=== PATIENT | female | born 1945 | race Caucasian/White ===

== ENCOUNTER → 2023-12-20 12:10 | Outpatient (REF) | payer MEDICARE, OTHER, SELFPAY ==
[2023-12-20 13:09] LABS: ALT (SGPT) 26 U/L (0-35); AST (SGOT) 34 U/L (14-36); Albumin 4.4 g/dl (3.5-5.0); Alkaline Phosphatase 74 U/L (38-126); Blood Urea Nitrogen 19 mg/dl (7-17); Calcium 9.9 mg/dl (8.4-10.2); Carbon Dioxide 33 mmol/L (22-30); Chloride 102 mmol/L (98-107); Glucose 126 mg/dl (70-99); HDL Cholesterol 81 mg/dl; LDL Cholesterol, Calculated 77 mg/dl; Potassium 4.5 mmol/L (3.5-5.1); Sodium 139 mmol/L (135-145); Total Bilirubin 0.9 mg/dl (0.2-1.3); Total Cholesterol 172 mg/dl (50-199); Total Protein 6.8 g/dl (6.3-8.2); Triglyceride 74 mg/dl (10-149); Very Low Density Lipoprotein 14 mg/dl (0-30); eGFR > 60.00
[2023-12-20 13:57] LABS: Microalbumin, Random Urine <0.6 mg/dl (0.6-1.7)
[2023-12-21 08:26] LABS: Glycohemoglobin (HgbA1c) 6.7 % (4.0-5.6)
== END ==
LOC: REG 12:10
PROVIDERS: ATTENDING PHYSICIAN Internal Medicine Endocrinology, Diabetes & Metabolism
DX: E10.65 Type 1 diabetes mellitus with hyperglycemia (principal)
CPT/HCPCS: 36415; 80053; 80061; 82043; 82570; 83036

== ENCOUNTER 2023-12-22 09:17 | Emergency (ER) | payer MEDICARE, OTHER, SELFPAY ==
[2023-12-22 09:28] VITALS: BP 141/66
--- NOTE | 2023-12-22 10:35 | ED.GENMED ---
History of Present Illness
<Stephanie Mccabe PA-C - Last Filed: 12/22/23 13:13>
General
Chief Complaint: Fall
Source: patient
Exam Limitations: none
Time Seen by Provider: 12/22/23 10:29
Nursing documentation reviewed up to this point in time: agreed with
Travel History
Have you had any contact with someone who has COVID-19?: No
Do you have any symptoms of coronavirus? Fever > 100 degrees, chills, cough, shortness of breath, sore throat, loss of taste or smell, muscle aches, or headache?: No
History of Present Illness
History of Present Illness:
78-year-old female with past medical history of insulin dependent diabetes presenting emergency department today with left-sided head pain and dizziness following a fall that occurred 6 days ago. Patient states that she was walking in her kitchen
when she tripped and hit her head on the counter and subsequently felt to her knees. Patient states that she did not lose consciousness. Patient states that she has no nausea vomiting. Patient states that she felt well at this time and thought
nothing of it but then her friends were advising her to report to emergency department and she started to feel some dizziness as the days progressed. Patient states that her dizziness is worse with looking at her phone or reading. Patient denies
any visual changes. Patient denies any eye pain. Patient denies any neck pain.
Past History
<Stephanie Mccabe PA-C - Last Filed: 12/22/23 13:13>
Past History
ED Past Medical History: IDDM and Psychiatric (Anxiety meds)
ED Past Surgical History: Negative Cardiac
Social History
Tobacco: Non-smoker
Alcohol: Occasional
Drug: None
Personal:
Living: with family
Employment: Retired
Family History
Family History: Other (Noncontributory); Negative Hypertension or Early CAD
Review of Systems
<Stephanie Mccabe PA-C - Last Filed: 12/22/23 13:13>
Review of Systems
All Other Systems: ROS reviewed and negative except as documented in HPI and ROS
Phy Exam
<Stephanie Mccabe PA-C - Last Filed: 12/22/23 13:13>
Physical Exam
Physical Exam:
General: Patient is well appearing and in no acute distress
Skin: Ecchymosis surrounding left orbit, small area of ecchymosis of the left forehead
Head: Mild tenderness palpation of the forehead. No palpable hematomas on the scalp. No Hendrix sign.
Eyes: No conjunctival erythema, hematomas. No proptosis. PERRLA. EOMs intact.
Ears: No hemotympanum bilaterally, no drainage from bilateral ears
Cardiac: Regular rate and rhythm.
Pulm: Normal respiratory effort
Abdomen: No abdominal tenderness, no signs of trauma
Musculoskeletal: Patient seen spontaneously moving cervical spine, no tenderness palpation of the cervical spine.
Neuro: AAOx3. Cranial nerves II through XII intact. Finger-nose, [id number] testing intact.
Course
<Stephanie Mccabe PA-C - Last Filed: 12/22/23 13:13>
Orders/Labs/Results
Orders:
Orders
12/22/23 10:43
CT Facial Bones W/o Iv Contras Urgent
Comment:
Reason For Exam: frontal head pain. head trauma
CT Head W/o Iv Contrast Urgent
Comment:
Reason For Exam: head trauma, dizziness
Vital Signs
Initial and Last Documented VS:
Initial Vital Signs
Temp Pulse Resp BP Pulse Ox
97.8 F 69 18 141/66 98
12/22/23 09:28 12/22/23 09:28 12/22/23 09:28 12/22/23 09:28 12/22/23 09:28
Last Documented Vital Signs
Temp Pulse Resp BP Pulse Ox
97.8 F 67 18 136/72 98
12/22/23 09:28 12/22/23 11:41 12/22/23 11:41 12/22/23 11:41 12/22/23 11:41
<Eliud Cunningham DO - Last Filed: 12/22/23 11:18>
Orders/Labs/Results
Orders:
Orders
12/22/23 10:43
CT Facial Bones W/o Iv Contras Urgent
Comment:
Reason For Exam: frontal head pain. head trauma
CT Head W/o Iv Contrast Urgent
Comment:
Reason For Exam: head trauma, dizziness
Vital Signs
Initial and Last Documented VS:
Initial Vital Signs
Temp Pulse Resp BP Pulse Ox
97.8 F 69 18 141/66 98
12/22/23 09:28 12/22/23 09:28 12/22/23 09:28 12/22/23 09:28 12/22/23 09:28
Last Documented Vital Signs
Temp Pulse Resp BP Pulse Ox
97.8 F 67 18 136/72 98
12/22/23 09:28 12/22/23 11:41 12/22/23 11:41 12/22/23 11:41 12/22/23 11:41
<Stephanie Mccabe PA-C - Last Filed: 12/22/23 13:13>
MDM/Problems Addressed
Differential Diagnosis Includes:
Differentials include concussion, epidural hematoma, intraparenchymal hemorrhage, orbital bone fracture, tension headache
MDM/Problems Addressed:
Mild head pain
Dizziness

Will obtain CT of the head and facial bones
Chronic conditions affecting care: DM and HTN
Acute Exacerbation and/or Progression of Chronic Illness: DM and HTN
<Stephanie Mccabe PA-C - Last Filed: 12/22/23 13:13>
*Radiology
Radiology exam reviewed: preliminary read by ED provider (No acute intracranial abnormality)
*Pulse Oximetry
Patient hypoxic: no
*Critical Care Note
Total Time (30-74mins, 75-104mins- exclusive of procedures): Not Applicable
Data Reviewed
Review of Other/Old Records Reveals: Records (Reviewed ER physician documentation from 09/24/20)
Source: patient, records and family
Prescriptions/Medications Considered But Not Given:
Considered medication for pain however patient states that she is comfortable at this time, Tylenol working for her at home
<Stephanie Mccabe PA-C - Last Filed: 12/22/23 13:13>
Patient Management
Escalation/DeEscalation of care consider admission/obs:
78-year-old female with past medical history of insulin dependent diabetes presenting emergency department today with left-sided head pain and dizziness following a fall that occurred 6 days ago. On exam, she has left ecchymosis surrounding the
left eye, mild ecchymosis to the left forehead, tenderness palpation of the forehead, however she is hemodynamically stable and has intact EOMs, no proptosis, no Hendrix sign. CT of the head was negative for any acute bleed, CT of the facial bones
did not show evidence of fracture. This patient's current symptoms are due to concussion. Advised patient to restrict activities that exacerbate her symptoms and follow-up with her primary care provider. Patient stable for discharge.
ED Attending Note
<Stephanie Mccabe PA-C - Last Filed: 12/22/23 13:13>
-
Portions of this chart may have been created with voice recognition software.� Occasional wrong word or��sound alike� substitutions may have occurred due to the inherent limitations of voice recognition software.
<Eliud Cunningham DO - Last Filed: 12/22/23 11:18>
ED Attending Note
Patient seen and examined by attending physician: Yes
I performed the substantive portion of visit, reviewed & personally made and approve the management plan that is documented in note by myself or JAMIN.: Yes
ED Attending Note:
Seen with PA examined independently agree with assessment and plan
Fall hit her head on a table few days ago no loss of consciousness bruising around the eye feels dizzy extraocular movements intact
Discharge Plan
Departure
Patient Disposition: Home (Routine Discharge)
Date of Disposition: 12/22/23
Time of Disposition: 12:22
Patient with high blood pressure during this ER visit?: Yes
Condition: Good
Discharge Problem:
Fall
Instructions: Concussion, Adult (DC), Head Injury in Adults (DC), BLOOD PRESSURE
Prescriptions:
No Action
Prozac
20 mg PO DAILY
Humalog
12 unit SQ DAILY
Patient Comments:
insulin in pump and infuses all day, dose depends on blood sugars.
ketorolac 10 MG tablet
10 mg PO Q6HPRN PRN (Reason: pain) Qty: 14 0RF
Rx Instructions:
Do not mix with other motrin or motrin like products
Referrals:
Mathew Pop MD [Family Provider] -
Activity Restrictions/Additional Instructions:
Your CT scan of the head did not show any evidence of intracranial bleeding. Your CT scan of the facial bones did not show any evidence of fracture.
I recommend limiting screen time and other activities that exacerbate your symptoms until your symptoms fully resolve.
Please follow up with your primary care provider following your trip to [place].
Interventions
Interventions:
*Risk Screen - Suicide Last Done: 12/22/23 09:30
*General Assessment Last Done: 12/22/23 09:30
*Neglect/Abuse Screening Last Done: 12/22/23 09:30
ED-Musculoskeletal Assessment Last Done: 12/22/23 10:33
ED- Neurological Assessment Last Done: 12/22/23 10:33
ED-Skin Assessment Last Done: 12/22/23 10:33
[2023-12-22 11:41] VITALS: BP 136/72
[2023-12-22 13:41] VITALS: BP 130/74
== END 2023-12-22 13:51 | disposition home or self-care (01) ==
LOC: EMR 09:17
PROVIDERS: EMERGENCY PHYSICIAN Emergency Medicine; FAMILY PHYSICIAN Internal Medicine
DX: S00.83XA Contusion of other part of head, initial encounter (principal); W01.119A Fall on same level from slipping, tripping and stumbling with subsequent striking against unspecified sharp object, initial encounter; E11.9 Type 2 diabetes mellitus without complications; I10 Essential (primary) hypertension
CPT/HCPCS: 99284; 70450; 70486

== ENCOUNTER → 2024-03-24 09:59 | Outpatient (REF) | payer MEDICARE, OTHER, SELFPAY ==
[2024-03-24 11:30] LABS: ALT (SGPT) 24 U/L (0-35); AST (SGOT) 38 U/L (14-36); Albumin 4.2 g/dl (3.5-5.0); Alkaline Phosphatase 70 U/L (38-126); Blood Urea Nitrogen 23 mg/dl (7-17); Calcium 9.5 mg/dl (8.4-10.2); Carbon Dioxide 34 mmol/L (22-30); Chloride 103 mmol/L (98-107); Glucose 151 mg/dl (70-99); Potassium 5.7 mmol/L (3.5-5.1); Sodium 143 mmol/L (135-145); Total Bilirubin 0.4 mg/dl (0.2-1.3); Total Protein 6.5 g/dl (6.3-8.2); eGFR > 60.00
[2024-03-24 12:37] LABS: Glycohemoglobin (HgbA1c) 6.7 % (4.0-5.6)
== END ==
LOC: REG 09:59
PROVIDERS: ATTENDING PHYSICIAN Internal Medicine Endocrinology, Diabetes & Metabolism; FAMILY PHYSICIAN Internal Medicine
DX: E10.65 Type 1 diabetes mellitus with hyperglycemia (principal)
CPT/HCPCS: 36415; 80053; 83036

== ENCOUNTER → 2024-06-30 09:40 | Outpatient (REF) | payer MEDICARE, OTHER, SELFPAY ==
[2024-06-30 11:37] LABS: TSH 3.47 uIU/ml (0.47-4.68)
[2024-06-30 11:48] LABS: ALT (SGPT) 23 U/L (0-35); AST (SGOT) 34 U/L (14-36); Albumin 4.3 g/dl (3.5-5.0); Alkaline Phosphatase 80 U/L (38-126); Blood Urea Nitrogen 20 mg/dl (7-17); Calcium 9.5 mg/dl (8.4-10.2); Carbon Dioxide 28 mmol/L (22-30); Chloride 102 mmol/L (98-107); Glucose 186 mg/dl (70-99); HDL Cholesterol 81 mg/dl; LDL Cholesterol, Calculated 82 mg/dl; Sodium 143 mmol/L (135-145); Total Bilirubin 0.8 mg/dl (0.2-1.3); Total Cholesterol 180 mg/dl (50-199); Total Protein 6.5 g/dl (6.3-8.2); Triglyceride 87 mg/dl (10-149); Very Low Density Lipoprotein 17 mg/dl (0-30); eGFR > 60.00
[2024-06-30 11:57] LABS: Glycohemoglobin (HgbA1c) 6.7 % (4.0-5.6)
[2024-06-30 16:36] LABS: Microalbumin, Random Urine 0.9 mg/dl (0.6-1.7)
== END ==
LOC: REG 09:40
PROVIDERS: ATTENDING PHYSICIAN Internal Medicine Endocrinology, Diabetes & Metabolism; FAMILY PHYSICIAN Internal Medicine
DX: E10.65 Type 1 diabetes mellitus with hyperglycemia (principal)
CPT/HCPCS: 36415; 80053; 80061; 82043; 83036; 84443

== ENCOUNTER 2024-09-20 13:38 | Emergency (ER) | payer MEDICARE, OTHER, SELFPAY ==
[2024-09-20 13:54] VITALS: BP 210/120
[2024-09-20 14:09] VITALS: BMI 25.5
[2024-09-20] MEDS: NSS 1000 IV (14:15)
--- NOTE | 2024-09-20 14:41 | ED.GENMED ---
History of Present Illness
General
Chief Complaint: Heart Rate Problem
Time Seen by Provider: 09/20/24 14:00
History of Present Illness
History of Present Illness:
79-year-old female with history of diabetes and hypertension presenting to the emergency department for chest pain and palpitations. Patient symptoms started about an hour prior to arrival with palpitations, checked her heart rate on her watch and
noted that it was very elevated. Denies any known history of high heart rate. She does report for the past 2 weeks she has been having left-sided chest wall pain, was diagnosed with 'arthritis '. Denies associated fever or cough. Does note that
she has been under a lot of stress and is not sure if that is contributing to her symptoms. Reports some dizziness. Denies focal weakness or sensory deficits or extremities. Denies additional cubicle complaints.
Past History
Past History
ED Past Medical History: IDDM and Psychiatric (Anxiety meds)
ED Past Surgical History: Negative Cardiac
Social History
Tobacco: Non-smoker
Alcohol: Occasional
Drug: None
Personal:
Living: with family
Employment: Retired
Family History
Family History: Other (Noncontributory); Negative Hypertension or Early CAD
Phy Exam
Physical Exam
Physical Exam:
General: Well-appearing, no clinical signs of dehydration, nontoxic and in no acute distress
HEENT: protecting airway
Neck: appears supple
CV: Tachycardia with irregular regular rhythm
Resp: No accessory muscle use, no increased work of breathing, lungs clear to auscultation bilaterally
Abd: Soft and non-distended, no tenderness to palpation
Extremities: No deformities, no swelling, no erythema
Neuro: alert, no focal neurologic deficit
: deferred
Rectal: deferred
Psych: Normal affect
Skin: Intact
Scores
[id number] Score for Afib Stroke Risk
Age in Years (65=0, 65-74=1, >/=75=2): > or = 75
Sex (Female=+1): Female
Congestive Heart Failure History (Yes=+1): No
Hypertension History (Yes=+1): Yes
Stroke/TIA/Thromboembolism History (Yes=+2): No
Vascular Disease History (Yes=+1): No
Diabetes Mellitus (Yes=+1): Yes
Score: 5
Anticoagulation Recommendations: Recommend anticoagulation (as validated in nonvalvular fib)
Course
Orders/Labs/Results
Orders:
Orders
09/20/24
Electrocardiogram (*1) Stat
Comment: ALREADY DONE
09/20/24 13:40
ECG [Electrocardiogram (*1)] Urgent
Reason for Study: Abnormal EKG
Other Reason for Exam: elevated HR and chest discomfort
09/20/24 13:41
EKG- Treatment ONCE
09/20/24 14:10
0.9% Sodium Chloride 1000 ml [Nss] 1,000 ml IV BOLUS
09/20/24 14:27
Diltiazem Sustained Release [Cardizem Sr] 120 mg PO NOW STA
09/20/24 14:36
Complete Blood Count/With Diff Urgent
Comprehensive Metabolic Panel Urgent
PTT Urgent
Prothrombin Time Urgent
TSH Urgent
Troponin I Urgent
09/20/24 14:38
CR Chest - 2 Views Urgent
Comment:
Reason For Exam: chest pain
Abnormal Lab Results
09/20/24
14:36
Hgb 16.2 H g/dL
(12.0-16.0)
Hct 48.2 H %
(37.0-47.0)
MCH 31.2 H pg
(27.0-31.0)
MPV 11.0 H fL
(7.4-10.4)
Absolute Lymphs (auto) 3.5 H 10^3/uL
(1.2-3.4)
BUN 29 H mg/dl
(7-17)
Glucose 204 H mg/dl
(70-99)
Calcium 10.3 H mg/dl
(8.4-10.2)
AST 47 H U/L
(14-36)
09/20/24 14:36
09/20/24 14:36
Vital Signs
Initial and Last Documented VS:
Initial Vital Signs
Temp Pulse Resp Pulse Ox
98.2 F 134 16 98
09/20/24 13:46 09/20/24 13:46 09/20/24 13:46 09/20/24 13:46
Last Documented Vital Signs
Temp Pulse Resp BP Pulse Ox
98.2 F 71 15 210/120 98
09/20/24 13:46 09/20/24 14:34 09/20/24 14:34 09/20/24 13:54 09/20/24 14:34
MDM/Problems Addressed
MDM/Problems Addressed:
79-year-old female with history of diabetes and hypertension presenting for palpitations which started an hour prior to arrival. Vital signs arrival septic and tachycardia.
On exam, patient is resting comfortably, no acute distress, however does appear uncomfortable secondary to her symptoms. While in examination room, patient converted to normal sinus rhythm, was previously in A-fib with RVR which is new for her.
Suspect etiology of presenting symptoms. Does note that the chest pain has been ongoing for about 2 weeks, reproducible nature with lower suspicion for ACS. Plan for laboratory analysis. Will administer oral diltiazem and discussed with
cardiology.
*EKG
Interpreted by ED Provider?: Yes
EKG Intrepretation Date: 09/20/24
EKG Intrepretation Time: 14:47
Interpretation: abnormal
Comparison EKG: changes noted (previously sinus)
Heart Rate: 146
Rate: tachycardiac
Rhythm: a-fib
[place]: normal axis
QRS Pattern: normal QRS
Ischemia: no ischemia
*Critical Care Note
Total Time (30-74mins, 75-104mins- exclusive of procedures): Not Applicable
ED Attending Note
-
Portions of this chart may have been created with voice recognition software.� Occasional wrong word or��sound alike� substitutions may have occurred due to the inherent limitations of voice recognition software.
Discharge Plan
Departure
Prescriptions:
No Action
Prozac
20 mg PO DAILY
Humalog
12 unit SQ DAILY
Patient Comments:
insulin in pump and infuses all day, dose depends on blood sugars.
ketorolac 10 MG tablet
10 mg PO Q6HPRN PRN (Reason: pain) Qty: 14 0RF
Rx Instructions:
Do not mix with other motrin or motrin like products
Referrals:
Mathew Pop MD [Family Provider] -
Interventions
Interventions:
*Risk Screen - Suicide Last Done: 09/20/24 14:11
*General Assessment Last Done: 09/20/24 14:11
*Neglect/Abuse Screening Last Done: 09/20/24 14:11
*ED COVID-19 Vaccine History Last Done: 09/20/24 14:11
ED- Cardiac Assessment Last Done: 09/20/24 14:13
Discharge Date and Time
Print Language: LATVIAN
[2024-09-20] MEDS: CARDIZEM SR 120 MG PO (14:43)
[2024-09-20 14:50] LABS: % Basophils 0.4 % (0-2); % Eosinophils 2.6 % (0-6); % Immature Granulocytes 0.3 % (0-0.5); % Lymphocytes 45.2 % (20.5-51.1); % Monocytes 6.9 % (1.7-9.3); % Neutrophils 44.6 % (42.2-75.2); Absolute Eosinophils 0.2 10^3/uL (0-0.7); Absolute Lymphocytes 3.5 10^3/uL (1.2-3.4); Absolute Monocytes 0.5 10^3/uL (0.1-0.6); Absolute Neutrophils 3.5 10^3/uL (1.4-6.5); Hematocrit 48.2 % (37.0-47.0); Hemoglobin 16.2 g/dL (12.0-16.0); Mean Corp Hgb Conc. 33.6 g/dL (33.0-37.0); Mean Corpuscular Hgb 31.2 pg (27.0-31.0); Mean Corpuscular Volume 92.9 fL (81.0-99.0); Nucleated Red Blood Cells % 0 %; Platelet Count 234 10^3/uL (130-400); Red Blood Cell Count 5.19 10^6/uL (4.20-5.40); White Blood Cell Count 7.8 10^3/uL (4.8-10.8)
[2024-09-20 15:08] LABS: INR 0.85; PT 12.2 Sec (11.4-14.6)
[2024-09-20 15:09] LABS: APTT 26.8 Sec (23.4-35.0)
[2024-09-20 15:10] LABS: ALT (SGPT) 29 U/L (0-35); AST (SGOT) 47 U/L (14-36); Albumin 4.9 g/dl (3.5-5.0); Alkaline Phosphatase 85 U/L (38-126); Blood Urea Nitrogen 29 mg/dl (7-17); Calcium 10.3 mg/dl (8.4-10.2); Carbon Dioxide 30 mmol/L (22-30); Chloride 99 mmol/L (98-107); Estimated Creatinine Clearance 48 ml/min; Glucose 204 mg/dl (70-99); Potassium 4.7 mmol/L (3.5-5.1); Sodium 141 mmol/L (135-145); Total Bilirubin 0.6 mg/dl (0.2-1.3); Total Protein 7.3 g/dl (6.3-8.2); eGFR > 60.00
[2024-09-20 15:23] LABS: Troponin I < 0.012 ng/ml
[2024-09-20 15:58] VITALS: BP 171/63
[2024-09-20 16:00] VITALS: BP 185/64
[2024-09-20 16:43] LABS: TSH 2.63 uIU/ml (0.47-4.68)
[2024-09-20] MEDS: LOPRESSOR 12.5 MG PO (17:00)
[2024-09-20] MEDS: ELIQUIS 10 MG PO (17:00)
== END 2024-09-20 17:02 | disposition home or self-care (01) ==
LOC: EMR 13:38
PROVIDERS: EMERGENCY PHYSICIAN Student in an Organized Health Care Education/Training Program; FAMILY PHYSICIAN Internal Medicine
DX: R07.89 Other chest pain (principal); R00.2 Palpitations; E11.9 Type 2 diabetes mellitus without complications; F41.9 Anxiety disorder, unspecified; I10 Essential (primary) hypertension; I48.91 Unspecified atrial fibrillation
CPT/HCPCS: 99283; 96360; 71046; 80053; 84443; 84484; 85025; 85610; 85730; 93005

== ENCOUNTER → 2024-10-14 11:02 | Outpatient (REF) | payer MEDICARE, OTHER, SELFPAY | LOC: RCS 11:02 | PROVIDERS: ATTENDING PHYSICIAN Internal Medicine Cardiovascular Disease; FAMILY PHYSICIAN Internal Medicine | DX: I47.19 Other supraventricular tachycardia (principal) | CPT/HCPCS: 93306 ==

== ENCOUNTER → 2024-12-19 10:08 | Outpatient (REF) | payer MEDICARE, OTHER, SELFPAY ==
[2024-12-19 11:51] LABS: Glycohemoglobin (HgbA1c) 6.6 % (4.0-5.6)
[2024-12-19 12:18] LABS: ALT (SGPT) 23 U/L (0-35); AST (SGOT) 34 U/L (14-36); Albumin 4.7 g/dl (3.5-5.0); Alkaline Phosphatase 69 U/L (38-126); Blood Urea Nitrogen 19 mg/dl (7-17); Calcium 10.1 mg/dl (8.4-10.2); Carbon Dioxide 32 mmol/L (22-30); Chloride 98 mmol/L (98-107); Glucose 147 mg/dl (70-99); HDL Cholesterol 70 mg/dl; LDL Cholesterol, Calculated 74 mg/dl; Potassium 4.6 mmol/L (3.5-5.1); Sodium 139 mmol/L (135-145); Total Bilirubin 1.1 mg/dl (0.2-1.3); Total Cholesterol 158 mg/dl (50-199); Total Protein 6.7 g/dl (6.3-8.2); Triglyceride 71 mg/dl (10-149); Very Low Density Lipoprotein 14 mg/dl (0-30); eGFR > 60.00
[2024-12-19 12:20] LABS: Microalbumin, Random Urine 1.1 mg/dl (0.6-1.7); Microalbumin/creatinine Ratio 10.2 mg/g
[2024-12-19 12:53] LABS: TSH 4.06 uIU/ml (0.47-4.68)
== END ==
LOC: REG 10:08
PROVIDERS: ATTENDING PHYSICIAN Internal Medicine Endocrinology, Diabetes & Metabolism; FAMILY PHYSICIAN Internal Medicine
DX: E10.65 Type 1 diabetes mellitus with hyperglycemia (principal)
CPT/HCPCS: 36415; 80053; 80061; 82043; 82570; 83036; 84443

== ENCOUNTER → 2025-03-30 09:04 | Outpatient (REF) | payer MEDICARE, OTHER, SELFPAY ==
[2025-03-30 10:22] LABS: ALT (SGPT) 21 U/L (0-35); AST (SGOT) 31 U/L (14-36); Albumin 4.3 g/dl (3.5-5.0); Alkaline Phosphatase 69 U/L (38-126); Blood Urea Nitrogen 23 mg/dl (7-17); Calcium 9.6 mg/dl (8.4-10.2); Carbon Dioxide 29 mmol/L (22-30); Chloride 106 mmol/L (98-107); Glucose 189 mg/dl (70-99); Potassium 5.2 mmol/L (3.5-5.1); Sodium 140 mmol/L (135-145); Total Bilirubin 0.7 mg/dl (0.2-1.3); Total Protein 6.6 g/dl (6.3-8.2); eGFR > 60.00
[2025-03-30 11:23] LABS: Glycohemoglobin (HgbA1c) 6.7 % (4.0-5.6)
== END ==
LOC: REG 09:04
PROVIDERS: ATTENDING PHYSICIAN Internal Medicine Endocrinology, Diabetes & Metabolism; FAMILY PHYSICIAN Internal Medicine
DX: E10.65 Type 1 diabetes mellitus with hyperglycemia (principal)
CPT/HCPCS: 36415; 80053; 83036

== ENCOUNTER 2025-07-07 15:23 | Emergency (ER) | payer MEDICARE, OTHER, SELFPAY ==
[2025-07-07 15:29] VITALS: BP 166/80
--- NOTE | 2025-07-07 16:59 | ED.GENMED ---
History of Present Illness
General
Chief Complaint: Abnormal Lab Value
Source: patient
Exam Limitations: none
Time Seen by Provider: 07/07/25 16:59
History of Present Illness
History of Present Illness:
Patient with routine labs. Elevated potassium. Asymptomatic. No chest pain shortness of breath lightheadedness or weakness. Sent for evaluation
Past History
Past History
ED Past Medical History: Arrthythmia, IDDM and Psychiatric (Anxiety meds)
ED Past Surgical History: Negative Cardiac
Social History
Tobacco: Non-smoker
Alcohol: Occasional
Drug: None
Personal:
Living: with family
Employment: Retired
Family History
Family History: Other (Noncontributory); Negative Hypertension or Early CAD
Review of Systems
Review of Systems
All Other Systems: Not applicable
Constitutional: Denies fever or chills
Respiratory: Reports no symptoms
Cardiac: Reports no symptoms
ABD/GI: Reports no symptoms
Phy Exam
Physical Exam
Physical Exam:
GENERAL: Alert and oriented in no apparent distress
EYE: Orbits normal.
CARDIAC: Regular rate and rhythm without any obvious murmurs.
LUNGS: Clear breath sounds,normal
ABDOMEN: Soft, without focal tenderness or distention
NEUROLOGICAL: Alert and oriented , grossly non-focal
SKIN: Warm and dry, no rash or lesion, no discoloration, skin intact.
MUSCULOSKELETAL: No edema,no deformity.Good color
PSYCH: Normal and appropriate interaction.
Course
Orders/Labs/Results
Orders:
Orders
07/07/25 15:33
EKG [Electrocardiogram (*1)] Urgent
Reason for Study: Tachycardia
EKG- Treatment ONCE
07/07/25 17:13
Basic Metabolic Panel Urgent
Complete Blood Count/With Diff Urgent
Abnormal Lab Results
07/07/25
17:13
MPV 11.2 H fL
(7.4-10.4)
Absolute Lymphs (auto) 3.9 H 10^3/uL
(1.2-3.4)
Absolute Monos (auto) 0.8 H 10^3/uL
(0.1-0.6)
BUN 35 H mg/dl
(7-17)
Glucose 56 L mg/dl
(70-99)
07/07/25 17:13
07/07/25 17:13
Vital Signs
Initial and Last Documented VS:
Initial Vital Signs
Temp Pulse Resp BP Pulse Ox
98.1 F 69 18 166/80 97
07/07/25 15:29 07/07/25 15:29 07/07/25 15:29 07/07/25 15:29 07/07/25 15:29
Last Documented Vital Signs
Temp Pulse Resp BP Pulse Ox
98.1 F 61 14 163/52 96
07/07/25 15:29 07/07/25 17:30 07/07/25 17:30 07/07/25 17:15 07/07/25 17:30
*Pulse Oximetry
SaO2: 97
Oxygen Mode of Delivery: Room air
Patient hypoxic: no
*EKG
Interpreted by ED Provider?: Yes
Interpretation: normal
Comparison EKG: no changes
Heart Rate: 70
Rate: normal
Rhythm: sinus
[place]: normal axis
Interval: normal interval
QRS Pattern: normal QRS
Ischemia: no ischemia
*Critical Care Note
Total Time (30-74mins, 75-104mins- exclusive of procedures): Not Applicable
Update Note
Update Note:
Patient asymptomatic. Potassium normal. Discharged to follow-up
ED Attending Note
-
Portions of this chart may have been created with voice recognition software.� Occasional wrong word or��sound alike� substitutions may have occurred due to the inherent limitations of voice recognition software.
Discharge Plan
Departure
Patient Disposition: Home (Routine Discharge)
Date of Disposition: 07/07/25
Time of Disposition: 17:56
Patient with high blood pressure during this ER visit?: Yes
Discharge Problem:
Evaluation of hyperkalemia
Instructions: BLOOD PRESSURE
Prescriptions:
No Action
Prozac
20 mg PO DAILY
Humalog
12 unit SQ DAILY
Patient Comments:
insulin in pump and infuses all day, dose depends on blood sugars.
ketorolac 10 MG tablet
10 mg PO Q6HPRN PRN (Reason: pain) Qty: 14 0RF
Rx Instructions:
Do not mix with other motrin or motrin like products
Eliquis DVT-PE Treat 30D Start 5 mg (74 tabs) tablets,dose pack
See Rx Instructions .ROUTE .COMPLEX Qty: 74 0RF
Rx Instructions:
orally per package directions
metoprolol tartrate 25 mg tablet
12.5 mg PO BID 30 Days Qty: 30 0RF
Referrals:
Mathew Pop MD [Family Provider, Internal Medicine] - Follow up in 2-3 days
Activity Restrictions/Additional Instructions:
Your repeat potassium was 5.1. This is normal.
Follow-up with your physician, returning sooner with unusual weakness lightheadedness etc.
Interventions
Interventions:
*Risk Screen - Suicide Last Done: 07/07/25 15:29
*General Assessment Last Done: 07/07/25 15:29
*Neglect/Abuse Screening Last Done: 07/07/25 15:29
*ED- Fall Risk Assessment Last Done: 07/07/25 15:29
*ED COVID-19 Vaccine History Last Done: 07/07/25 15:29
*Nursing Disposition Last Done: 07/07/25 18:04
Discharge Date and Time
Discharge Date/Time: 07/07/25 18:07
Print Language: [place]
[2025-07-07 17:15] VITALS: BP 163/52
[2025-07-07 17:22] LABS: Hematocrit 42.2 % (37.0-47.0); Hemoglobin 14.2 g/dL (12.0-16.0); Mean Corp Hgb Conc. 33.6 g/dL (33.0-37.0); Mean Corpuscular Volume 91.9 fL (81.0-99.0); Nucleated Red Blood Cells % 0 %; Platelet Count 213 10^3/uL (130-400); Red Cell Dist. Width 13.1 % (11.5-14.5)
[2025-07-07 17:34] LABS: Blood Urea Nitrogen 35 mg/dl (7-17); Calcium 9.6 mg/dl (8.4-10.2); Carbon Dioxide 29 mmol/L (22-30); Chloride 103 mmol/L (98-107); Glucose 56 mg/dl (70-99); Potassium 5.1 mmol/L (3.5-5.1); Sodium 137 mmol/L (135-145); eGFR > 60.00
== END 2025-07-07 18:07 | disposition home or self-care (01) ==
LOC: EMR 15:23
PROVIDERS: EMERGENCY PHYSICIAN Emergency Medicine; FAMILY PHYSICIAN Internal Medicine
DX: E87.5 Hyperkalemia (principal); E11.9 Type 2 diabetes mellitus without complications; Z79.4 Long term (current) use of insulin
CPT/HCPCS: 99284; 36415; 80048; 80053; 80061; 82043; 82570; 83036; 84443; 85025; 93005